=== PATIENT | female | born 1970 | race Caucasian/White ===

== ENCOUNTER 2023-08-29 14:51 | Outpatient (AMB) | payer BC, SELFPAY ==
[2023-08-29 14:57] VITALS: BMI 18.8
--- NOTE | 2023-08-29 14:57 | MHC.OFFVIS ---
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 States her symptoms are worse at night. States she mainly feels in in her middle finger radiating to her elbow. Patient denies use of brace, injection or O.T. Patient reports her symptoms have improve in the last 2-3 weeks. No EMG done. Patient tried and failed gabapentin. Also patient mentioned she has pain at her CMC joint with pinching, grabbing and twisting of wrist. Hx of wrist fracture. Allergies No Known Allergies Allergy (Verified 08/29/23 15:01) Medication List - Last Reconciled 08/29/23 by Shandra Contreras MD gabapentin 100 mg PO DAILY loratadine (Claritin) 10 mg PO DAILY HPI HPI Comments History of Present Illness Details Referred from [facility]. Cervical xray there reported disc degeneration C5-6. Referred to us to see if finger numbness is related to cervical spine. Tingling on right tip of 3rd finger, radiates proximally to elbow. Not associated to any shoulder or neck pain. On/off for a few years now. 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 The tingling/pain was almost constant, relieved for a few minutes only with walking and keeping the arms straight. Nowadays, occasional tingling during the day. Still bothering her worst at night. Cramps and feel swollen at night. Difficulty working out, lifting weights. Treatment done so far: gabapentin [facility] Social History (Updated 08/29/23 @ 15:03 by HAILE Fisher) Current occupation: righthand / business applications specialist Review of Systems Const All systems reviewed & are unremarkable except as noted in HPI and below Physical Exam Vital Signs: BMI result Body Mass Index 18.8 Constitutional: Patient appears to be in no acute distress, well nourished and well developed. MSK: Inspection reveals appropriate head and neck positioning. Cervical ROM was full. Spurling's sign negative. No intrinsic hand weakness noted. No atrophy noted. Dash test negative. Carpal compression test positive, right worse than left. Tinel sign positive right elbow. Strength is 5/5 in all muscle groups tested. No increased tone noted. Neurological: Neurologic examination of the upper and lower extremities was nonfocal with intact sensation, muscle stretch reflexes and without focal motor deficits . Benitez?s negative bilaterally. Gait is non-antalgic without loss of balance. Results Reviewed Results Reviewed: I reviewed records from the following: [facility] Assessment & Plan Assessment & Plan (1) Carpal tunnel syndrome on both sides: Code(s): G56.03 - Carpal tunnel syndrome, bilateral upper limbs (2) Numbness in both hands: Code(s): R20.0 - Anesthesia of skin Plan Clinically, signs and symptoms suggestive of Carpal Tunnel Syndrome, right worse than left. Do not see signs of cervical radiculopathy or myelopathy, nor do I think hand symptoms are related to cervical spine. Trial splint, specifically resting wrist splints, to wear at night. NCS/EMG to confirm CTS and rule out ulnar neuropathy. We talked about possible surgical management versus injection depending on results of EMG. Assessment and plan discussed with patient, and patient was agreeable. All questions were answered thoroughly. Shandra Contreras MD, [place] Board Certified, [place] [employer] and [employer] (ABPMR) Board Certified, [place] [employer] (ABEM) Orders: Orders NE electromyogram (EMG) Today G56.03 - Carpal tunnel syndrome, bilateral upper limbs NE nerve conduction velocity Today G56.03 - Carpal tunnel syndrome, bilateral upper limbs Coding Level of Care Code New Pt Level 4 (55335) Diagnoses Carpal tunnel syndrome on both sides G56.03 Numbness in both hands R20.0
== END 2023-08-29 15:39 | disposition home or self-care (01) ==
PROVIDERS: PCP Physician Assistant; Visit Provider Physical Medicine & Rehabilitation
DX: G56.03 Carpal tunnel syndrome, bilateral upper limbs (principal); R20.0 Anesthesia of skin
CPT/HCPCS: 99204

== ENCOUNTER → 2023-08-29 14:51 | Outpatient (BNVA) | payer BC, SELFPAY | PROVIDERS: PCP Physician Assistant; Visit Provider Physical Medicine & Rehabilitation ==

== ENCOUNTER 2023-10-26 08:26 | Outpatient (REF) | payer BC, SELFPAY | END 2023-10-26 08:27 | disposition home or self-care (01) | LOC: HO.NEURO 08:26 | PROVIDERS: PCP Family Medicine; Visit Provider Physical Medicine & Rehabilitation | DX: G56.03 Carpal tunnel syndrome, bilateral upper limbs (principal) | CPT/HCPCS: 95886; 95911 ==